=== PATIENT | male | born 1995 | race African-American/Black ===

== ENCOUNTER 2019-11-06 18:52 | Emergency (ER) | payer OTHER ==
[~2019-11-06] VITALS: Ht 185.4 cm; Wt 69.9 kg
[2019-11-06 19:10] VITALS: BP 139/79
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
[2019-11-06] MEDS ORDERED: LIDOCAINE MPF 1% 10 MG/ML VIAL INJ ONE (19:40)
--- NOTE | 2019-11-06 19:57 | NUR ---
DR BARTLETT AT BEDSIDE PERFORMING PROCEDURE
== END 2019-11-06 20:42 | disposition home or self-care (01) ==
LOC: MED 18:52
DX: S01.511A Laceration without foreign body of lip, initial encounter (principal); F12.90 Cannabis use, unspecified, uncomplicated; W20.8XXA Other cause of strike by thrown, projected or falling object, initial encounter; Y93.89 Activity, other specified; Y92.89 Other specified places as the place of occurrence of the external cause; Y99.8 Other external cause status
CPT/HCPCS: 12011; 99284; J2001

== ENCOUNTER 2019-11-22 08:14 | Emergency (ER) | payer OTHER ==
[~2019-11-22] VITALS: Ht 185.4 cm; Wt 69.9 kg
[2019-11-22 08:16] VITALS: BP 124/72
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
--- NOTE | 2019-11-22 08:25 | NUR ---
DR. GARCIA EVALUATING PT AT BEDSIDE
[2019-11-22 08:39] VITALS: BP 124/72
--- NOTE | 2019-11-22 08:39 | NUR ---
Patient discharged with v/s stable. Written and verbal after care instructions given and explained. Patient verbalized understanding. Ambulatory with steady gait. All questions addressed prior to discharge. Advised to follow up with PMD.
== END 2019-11-22 08:39 | disposition home or self-care (01) ==
LOC: MED 08:14
DX: S01.81XD Laceration without foreign body of other part of head, subsequent encounter (principal); F12.90 Cannabis use, unspecified, uncomplicated; X58.XXXD Exposure to other specified factors, subsequent encounter
CPT/HCPCS: 99281

== ENCOUNTER 2023-10-26 00:34 | Emergency (ER) | payer OTHER ==
[~2023-10-26] VITALS: Ht 188 cm; Wt 64.4 kg
[2023-10-26 01:11] VITALS: BP 132/93; PULSE 73; RESP 16; TEMP 97.1; O2SAT 96
[2023-10-26 01:51] LABS: APPEARANCE,URINE CLEAR (CLEAR); BILIRUBIN,URINE 2+ (NEGATIVE); BLOOD, URINE TRACE-I (NEGATIVE); COLOR,URINE YELLOW (YELLOW); LEUKOCYTE ESTERASE ,URINE NEGATIVE (NEGATIVE); NITRITE, URINE NEGATIVE (NEGATIVE); PROTEIN,URINE 2+ (NEGATIVE); UGLUCOSE NEGATIVE (NEGATIVE); UROBILINOGEN,URINE 0.2 EU/dL (0.2 - 1)
[2023-10-26 01:57] LABS: ICTOTEST POSITIVE (NEGATIVE)
[2023-10-26 01:59] LABS: BACTERIA,URINE 10-30 (MOD) /HPF (None Seen); MUCUS,URINE 1+ /LPF (None Seen); RBC,URINE 0-5 /HPF (0-5); SQUAMOUS EPITHELIAL CELL,UR 0-3 (FEW) /LPF (0-3 (FEW)); WBC,URINE 0-5 /HPF (0-5)
[2023-10-26 02:00] LABS: AMPHETAMINE, URINE NEGATIVE ng/ml (NEG <=1000); BARBITURATE, URINE NEGATIVE ng/ml (NEG <=200); BENZODIAZEPINE, URINE NEGATIVE ng/mL (NEG <=200); CANNABINOID, URINE POSITIVE ng/mL (NEG <=50); COCAINE, URINE NEGATIVE ng/mL (NEG <=300); OPIATE, URINE POSITIVE ng/mL (NEG <=2000); PHENCYCLIDINE SCREEN,URINE NEGATIVE ng/mL (NEG <=25)
== END 2023-10-26 03:11 | disposition left against medical advice (07) ==
LOC: MED 00:34
DX: R11.10 Vomiting, unspecified (principal); Z53.21 Procedure and treatment not carried out due to patient leaving prior to being seen by health care provider
CPT/HCPCS: 80305; 81001; 99281